=== PATIENT | female | born 1940 | race Caucasian/White ===

== ENCOUNTER 2019-11-20 11:52 | Day surgery (SDC) | payer OTHER ==
[~2019-11-20] VITALS: Ht 165.1 cm; Wt 84.3 kg
[~2019-11-20 11:52] MED LIST: ASPI81EC PO; BETA.1TL TP; CETI10 PO; DIGO.125 PO; ESTR.05PBW; Hair, Skin & N1 EACH PO; LOPE2C PO; NEBI5 PO; OMEP20ER PO; PARO10 PO; RANI150 PO; SIMV10 PO; XARELTO20 MG PO
== END 2019-11-20 13:19 | disposition home or self-care (01) ==
LOC: ORSCSDS 11:52
PROVIDERS: Internal Medicine Gastroenterology
PROC: 0DB58ZX Excision of Esophagus, Via Natural or Artificial Opening Endoscopic, Diagnostic (ICD-10-PCS; principal; 2019-11-20 13:00)
DX: K22.70 Barrett's esophagus without dysplasia (principal); K44.9 Diaphragmatic hernia without obstruction or gangrene; G47.33 Obstructive sleep apnea (adult) (pediatric); I48.91 Unspecified atrial fibrillation; E66.9 Obesity, unspecified; Z68.31 Body mass index [BMI] 31.0-31.9, adult; Z79.01 Long term (current) use of anticoagulants; Z79.899 Other long term (current) drug therapy
CPT/HCPCS: 82947; 88305; J2704; J7120

== ENCOUNTER 2019-12-28 14:09 | Emergency (ER) | payer OTHER ==
[~2019-12-28] VITALS: Ht 162.6 cm; Wt 83.9 kg
[2019-12-28 16:48] LABS: BASOPHILS ABSOLUTE AUTO 0.06 K/mm3 (0.00-0.23); BASOPHILS PERCENT AUTO 1 % (0-2); EOSINOPHILS ABSOLUTE AUTO 0.21 K/mm3 (0.00-0.68); EOSINOPHILS PERCENT AUTO 2 % (0-6); Hematocrit 43.6 % (33.0-51.0); Hemoglobin 13.7 g/dL (11.5-16.0); IMMATURE GRAN ABSOLUTE AUTO 0.03 K/mm3 (0.00-0.10); IMMATURE GRAN PERCENT AUTO 0 % (0-1); LYMPHOCYTES ABSOLUTE AUTO 2.08 K/mm3 (0.84-5.20); LYMPHOCYTES PERCENT AUTO 21 % (21-46); MONOCYTES ABSOLUTE AUTO 0.72 K/mm3 (0.16-1.47); MONOCYTES PERCENT AUTO 7 % (4-13); Mean Corpuscular HGB Conc 31.4 g/dL (31.5-36.5); Mean Corpuscular Volume 96 fL (80-100); Mean Platelet Volume 11.3 fL (9.1-12.4); NEUTROPHILS ABSOLUTE AUTO 6.85 K/mm3 (1.96-9.15); NEUTROPHILS PERCENT AUTO 69 % (41-73); Platelet Count 298 K/mm3 (150-400); RDW Coefficient Variation 12.9 % (11.7-14.2); RDW Standard Deviation 45.1 fL (35.1-46.3); Red Blood Cell Count 4.56 M/mm3 (3.80-5.20); White Blood Cell Count 9.95 K/mm3 (4.00-11.30)
[2019-12-28 17:12] LABS: Alanine Aminotransfer (ALT/SGP 24 U/L (12-78); Albumin, Blood 3.6 g/dL (3.4-5.0); Anion Gap 4 mmol/L (6-16); Blood Urea Nitrogen 16 mg/dL (8-24); CO2, Blood 27 mmol/L (21-32); Chloride, Blood 109 mmol/L (98-108); Glucose, Blood 107 mg/dL (70-99); Potassium, Blood 3.9 mmol/L (3.5-5.5); Sodium, Blood 140 mmol/L (136-145)
[2019-12-28 17:18] LABS: Troponin I 0.015 ng/mL (0.000-0.040)
[2019-12-28 17:19] LABS: Albumin/Globulin Ratio 0.9 (0.8-1.8); Alk Phos 63 U/L (50-136); Bilirubin, Total 0.2 mg/dL (0.1-1.0); Bun/Creatinine Ratio 17.6 (12.0-20.0); Creatinine, Blood 0.91 mg/dL (0.40-1.00); Glomerular Filtration Rate >60 (60-); Total Protein, Blood 7.6 g/dL (6.4-8.2)
[2019-12-28 17:28] LABS: Aspartate Aminotrans (AST/SGOT 14 U/L (12-37)
[2019-12-28 18:14] LABS: Digoxin (Lanoxin) 0.95 ug/mL (0.80-2.00)
== END 2019-12-28 19:15 | disposition home or self-care (01) ==
LOC: ER 14:09
PROVIDERS: Physician Assistant
DX: I48.91 Unspecified atrial fibrillation (principal); E78.5 Hyperlipidemia, unspecified; Z79.899 Other long term (current) drug therapy
CPT/HCPCS: 36415; 71046; 80053; 80162; 84443; 84484; 85025; 93005; 93010; 96374; 99285-25

== ENCOUNTER → 2021-01-31 | Outpatient (CLI) | payer OTHER | END | disposition home or self-care (01) | LOC: LAB SHORT 11:00 | DX: R30.0 Dysuria (principal) | CPT/HCPCS: 87077; 87086; 87186 ==

== ENCOUNTER → 2021-02-01 | Outpatient (CLI) | payer OTHER | END | disposition home or self-care (01) | LOC: LAB EV 10:28 → LAB SHORT 10:28 | DX: N39.0 Urinary tract infection, site not specified (principal) | CPT/HCPCS: 87077; 87086; 87147; 87186 ==

== ENCOUNTER 2021-03-17 14:23 | Emergency (ER) | payer OTHER ==
[~2021-03-17] VITALS: Ht 162.6 cm; Wt 75.8 kg
[2021-03-17 15:19] LABS: BASOPHILS ABSOLUTE AUTO 0.05 K/mm3 (0.00-0.23); BASOPHILS PERCENT AUTO 1 % (0-2); EOSINOPHILS ABSOLUTE AUTO 0.23 K/mm3 (0.00-0.68); EOSINOPHILS PERCENT AUTO 3 % (0-6); Hematocrit 40.3 % (33.0-51.0); Hemoglobin 13.1 g/dL (11.5-16.0); IMMATURE GRAN ABSOLUTE AUTO 0.03 K/mm3 (0.00-0.10); IMMATURE GRAN PERCENT AUTO 0 % (0-1); LYMPHOCYTES ABSOLUTE AUTO 1.64 K/mm3 (0.84-5.20); LYMPHOCYTES PERCENT AUTO 19 % (21-46); MONOCYTES ABSOLUTE AUTO 0.57 K/mm3 (0.16-1.47); MONOCYTES PERCENT AUTO 7 % (4-13); Mean Corpuscular HGB 30.5 pg (26.0-34.0); Mean Corpuscular HGB Conc 32.5 g/dL (31.5-36.5); Mean Corpuscular Volume 94 fL (80-100); Mean Platelet Volume 11.6 fL (9.1-12.4); NEUTROPHILS ABSOLUTE AUTO 6.01 K/mm3 (1.96-9.15); NEUTROPHILS PERCENT AUTO 70 % (41-73); Platelet Count 272 K/mm3 (150-400); RDW Coefficient Variation 13.3 % (11.7-14.2); RDW Standard Deviation 45.8 fL (35.1-46.3); Red Blood Cell Count 4.29 M/mm3 (3.80-5.20); White Blood Cell Count 8.53 K/mm3 (4.00-11.30)
[2021-03-17 15:52] LABS: Albumin, Blood 3.5 g/dL (3.4-5.0); Albumin/Globulin Ratio 1.1 (0.8-1.8); Bilirubin, Total 0.3 mg/dL (0.1-1.0); Bun/Creatinine Ratio 19.1 (12.0-20.0); Calcium, Blood 9.1 mg/dL (8.5-10.1); Creatinine, Blood 1.1 mg/dL (0.40-1.00); Globulin, Blood 3.3 g/dL (2.2-4.0); Potassium, Blood 4.3 mmol/L (3.5-5.5); Total Protein, Blood 6.8 g/dL (6.4-8.2)
[2021-03-17 18:49] LABS: Source, Urine Clean Catch
[2021-03-17 18:53] LABS: Appearance, Urine Hazy (Clear); Bilirubin, Urine Neg (Neg); Blood, Urine 1+ (Neg); Color, Urine Yellow (P-Yellow); Glucose Qualitative, Urine Neg (Neg); Ketones, Urine 1+ (Neg); Leukocyte Esterase, Urine 3+ (Neg); Nitrite, Urine Neg (Neg); Protein, Urine 2+ (Neg); Urobilinogen, Urine NORM (Normal)
[2021-03-17 19:11] LABS: Bacteria Many /hpf; Red Blood Cells, Urine 0-2 /hpf (0-2); Squamous Epithelial Cells Many /hpf (Few); White Blood Cells, Urine 50-100 /hpf (0-5)
== END 2021-03-17 18:35 | disposition left against medical advice (07) ==
LOC: ER 14:23
PROVIDERS: Physician Assistant
DX: R10.9 Unspecified abdominal pain (principal); Z53.21 Procedure and treatment not carried out due to patient leaving prior to being seen by health care provider; Z87.891 Personal history of nicotine dependence; Z79.899 Other long term (current) drug therapy; Z79.01 Long term (current) use of anticoagulants
CPT/HCPCS: 36415; 80053; 81001; 83690; 85025; 87086; 87147; 99283

== ENCOUNTER 2021-07-28 07:59 | Day surgery (SDC) | payer OTHER ==
[~2021-07-28] VITALS: Ht 162.6 cm; Wt 75.1 kg
[~2021-07-28 07:59] MED LIST changes: +Lisinopril2.5 MG; +OMEP20ER
== END 2021-07-28 10:35 | disposition home or self-care (01) ==
LOC: ORSCSDS 07:59
PROVIDERS: Internal Medicine Gastroenterology
PROC: 0D758ZZ Dilation of Esophagus, Via Natural or Artificial Opening Endoscopic (ICD-10-PCS; principal; 2021-07-28 09:45)
PROC: 0DB58ZX Excision of Esophagus, Via Natural or Artificial Opening Endoscopic, Diagnostic (ICD-10-PCS; principal; 2021-07-28 09:45)
PROC: 0DBL8ZX Excision of Transverse Colon, Via Natural or Artificial Opening Endoscopic, Diagnostic (ICD-10-PCS; principal; 2021-07-28 09:45)
PROC: 0DBM8ZX Excision of Descending Colon, Via Natural or Artificial Opening Endoscopic, Diagnostic (ICD-10-PCS; principal; 2021-07-28 09:45)
DX: K22.70 Barrett's esophagus without dysplasia (principal); R13.14 Dysphagia, pharyngoesophageal phase; Z12.11 Encounter for screening for malignant neoplasm of colon; Z86.010 Personal history of colon polyps; K57.32 Diverticulitis of large intestine without perforation or abscess without bleeding; D12.3 Benign neoplasm of transverse colon; D12.4 Benign neoplasm of descending colon; K22.2 Esophageal obstruction; K44.9 Diaphragmatic hernia without obstruction or gangrene; I48.91 Unspecified atrial fibrillation; Z79.01 Long term (current) use of anticoagulants; Z79.899 Other long term (current) drug therapy
CPT/HCPCS: 88305; J2704; J7120

== ENCOUNTER 2022-09-12 17:47 | Emergency (ER) | payer OTHER ==
[~2022-09-12] VITALS: Ht 162.6 cm; Wt 80.7 kg
[2022-09-12 18:43] LABS: BASOPHILS ABSOLUTE AUTO 0.04 K/mm3 (0.00-0.23); BASOPHILS PERCENT AUTO 1 % (0-2); EOSINOPHILS ABSOLUTE AUTO 0.14 K/mm3 (0.00-0.68); EOSINOPHILS PERCENT AUTO 2 % (0-6); Hematocrit 37.7 % (33.0-51.0); Hemoglobin 12.4 g/dL (11.5-16.0); IMMATURE GRAN ABSOLUTE AUTO 0.02 K/mm3 (0.00-0.10); IMMATURE GRAN PERCENT AUTO 0 % (0-1); LYMPHOCYTES ABSOLUTE AUTO 0.62 K/mm3 (0.84-5.20); LYMPHOCYTES PERCENT AUTO 9 % (21-46); MONOCYTES ABSOLUTE AUTO 0.69 K/mm3 (0.16-1.47); MONOCYTES PERCENT AUTO 10 % (4-13); Mean Corpuscular HGB 30.8 pg (26.0-34.0); Mean Corpuscular HGB Conc 32.9 g/dL (31.5-36.5); Mean Corpuscular Volume 94 fL (80-100); Mean Platelet Volume 11.3 fL (9.1-12.4); NEUTROPHILS ABSOLUTE AUTO 5.54 K/mm3 (1.96-9.15); NEUTROPHILS PERCENT AUTO 79 % (41-73); Platelet Count 199 K/mm3 (150-400); RDW Coefficient Variation 13.2 % (11.7-14.2); RDW Standard Deviation 45.3 fL (35.1-46.3); Red Blood Cell Count 4.02 M/mm3 (3.80-5.20); White Blood Cell Count 7.05 K/mm3 (4.00-11.30)
[2022-09-12 18:45] LABS: Influenza A, PCR POSITIVE (NEGATIVE); Influenza B, PCR NEGATIVE (NEGATIVE); Resp Syncytial Virus, PCR NEGATIVE (NEGATIVE); SARS-Cov-2 (COVID-19) PCR, MMC NEGATIVE (NEGATIVE)
[2022-09-12 19:03] LABS: Albumin, Blood 3.3 g/dL (3.4-5.0); Bilirubin, Total 0.3 mg/dL (0.1-1.0); Bun/Creatinine Ratio 13.7 (12.0-20.0); Calcium, Blood 8.7 mg/dL (8.5-10.1); Creatinine, Blood 0.95 mg/dL (0.40-1.00); Globulin, Blood 3.4 g/dL (2.2-4.0); Potassium, Blood 4.2 mmol/L (3.5-5.5); Total Protein, Blood 6.7 g/dL (6.4-8.2)
== END 2022-09-12 20:04 | disposition home or self-care (01) ==
LOC: ER 17:47
PROVIDERS: Physician Assistant
DX: J10.1 Influenza due to other identified influenza virus with other respiratory manifestations (principal); E78.5 Hyperlipidemia, unspecified; Z20.822 Contact with and (suspected) exposure to COVID-19; Z79.899 Other long term (current) drug therapy; Z79.02 Long term (current) use of antithrombotics/antiplatelets
CPT/HCPCS: 0241U; 71046; 80053; 84484; 85025; 93005; 93010

== ENCOUNTER 2024-07-23 16:44 | Emergency (ER) | payer OTHER ==
[~2024-07-23] VITALS: Ht 160 cm; Wt 79.8 kg
[~2024-07-23 16:44] MED LIST changes: -IRON FOLATE PL1 EACH PO; -ONDA4ODT MM
[2024-07-23 18:09] LABS: Hemoglobin 7.3 g/dL (11.5-16.0); Mean Corpuscular HGB 22.2 pg (26.0-34.0); Mean Corpuscular HGB Conc 29.2 g/dL (31.5-36.5); Mean Corpuscular Volume 76 fL (80-100); Mean Platelet Volume 10.6 fL (9.1-12.4); Platelet Count 596 K/mm3 (150-400); RDW Standard Deviation 46.9 fL (35.1-46.3); Red Blood Cell Count 3.29 M/mm3 (3.80-5.20)
[2024-07-23 18:30] LABS: Albumin, Blood 3.9 g/dL (3.4-5.0); Albumin/Globulin Ratio 1.1 (0.8-1.8); Bilirubin, Total 0.5 mg/dL (0.1-1.0); Bun/Creatinine Ratio 21.5 (12.0-20.0); Calcium, Blood 8.8 mg/dL (8.5-10.1); Creatinine, Blood 2.65 mg/dL (0.40-1.00); Globulin, Blood 3.6 g/dL (2.2-4.0); Percent Saturation 3.7 % (15.0-50.0); Potassium, Blood 4.4 mmol/L (3.5-5.5); Total Protein, Blood 7.5 g/dL (6.4-8.2)
[2024-07-23 18:31] LABS: BASOPHILS ABSOLUTE MAN 0.15 K/mm3 (0.00-0.23); BASOPHILS PERCENT MAN 1 % (0-2); EOSINOPHILS PERCENT MAN 0 % (0-6); LYMPHOCYTES PERCENT MAN 6 % (21-46); MONOCYTES ABSOLUTE MAN 0.45 K/mm3 (0.16-1.47); MONOCYTES PERCENT MAN 3 % (4-13); NEUTROPHILS ABSOLUTE MAN 13.59 K/mm3 (1.96-9.15); SEG NEUTROPHILS PERCENT MAN 90 % (41-73); TOTAL CELLS COUNTED 100
[2024-07-23 19:07] LABS: Albumin, Blood 3.9 g/dL (3.4-5.0); Albumin/Globulin Ratio 1.1 (0.8-1.8); Bilirubin, Total 0.5 mg/dL (0.1-1.0); Bun/Creatinine Ratio 20.9 (12.0-20.0); Calcium, Blood 9.2 mg/dL (8.5-10.1); Creatinine, Blood 2.68 mg/dL (0.40-1.00); Globulin, Blood 3.7 g/dL (2.2-4.0); Potassium, Blood 4.6 mmol/L (3.5-5.5); Total Protein, Blood 7.6 g/dL (6.4-8.2)
[2024-07-23] MEDS ORDERED: NS 500 ML IV SCH (19:10)
[2024-07-23 21:45] VITALS: BP 114/45
[2024-07-23] MEDS ORDERED: ONDA4ODT MM (22:03)
[2024-07-23] MEDS ORDERED: IRON FOLATE PL1 EACH PO (22:03)
== END 2024-07-23 22:00 | disposition home or self-care (01) ==
LOC: ER 16:44
PROVIDERS: Emergency Medicine; Physician Assistant
DX: R11.2 Nausea with vomiting, unspecified (principal); K80.20 Calculus of gallbladder without cholecystitis without obstruction; D64.9 Anemia, unspecified; R79.89 Other specified abnormal findings of blood chemistry; E86.0 Dehydration; R94.31 Abnormal electrocardiogram [ECG] [EKG]; E61.1 Iron deficiency; K21.9 Gastro-esophageal reflux disease without esophagitis; I11.0 Hypertensive heart disease with heart failure; I50.9 Heart failure, unspecified; E78.5 Hyperlipidemia, unspecified; Z79.899 Other long term (current) drug therapy; Z79.02 Long term (current) use of antithrombotics/antiplatelets
CPT/HCPCS: 71045; 74176; 80053; 82728; 83540; 83550; 83690; 83735; 84484; 85025; 99284-25; J7030

== ENCOUNTER → 2024-07-23 | Outpatient (CLI) | payer OTHER ==
[~2024-07-23] MED LIST changes: +IRON FOLATE PL1 EACH PO; +ONDA4ODT MM; +PARO20 PO
[2024-07-23 15:53] LABS: BASOPHILS ABSOLUTE AUTO 0.04 K/mm3 (0.00-0.23); BASOPHILS PERCENT AUTO 0 % (0-2); EOSINOPHILS PERCENT AUTO 0 % (0-6); Hematocrit 24.5 % (33.0-51.0); Hemoglobin 7.3 g/dL (11.5-16.0); IMMATURE GRAN ABSOLUTE AUTO 0.08 K/mm3 (0.00-0.10); IMMATURE GRAN PERCENT AUTO 1 % (0-1); LYMPHOCYTES ABSOLUTE AUTO 0.87 K/mm3 (0.84-5.20); LYMPHOCYTES PERCENT AUTO 6 % (21-46); MONOCYTES ABSOLUTE AUTO 0.63 K/mm3 (0.16-1.47); MONOCYTES PERCENT AUTO 5 % (4-13); Mean Corpuscular HGB 22.3 pg (26.0-34.0); Mean Corpuscular HGB Conc 29.8 g/dL (31.5-36.5); Mean Corpuscular Volume 75 fL (80-100); NEUTROPHILS PERCENT AUTO 88 % (41-73); Platelet Count 579 K/mm3 (150-400); RDW Coefficient Variation 17.1 % (11.7-14.2); RDW Standard Deviation 46.5 fL (35.1-46.3); Red Blood Cell Count 3.27 M/mm3 (3.80-5.20); White Blood Cell Count 13.82 K/mm3 (4.00-11.30)
[2024-07-23 16:06] LABS: Albumin, Blood 3.9 g/dL (3.4-5.0); Albumin/Globulin Ratio 1.1 (0.8-1.8); Bilirubin, Total 0.5 mg/dL (0.1-1.0); Calcium, Blood 9.3 mg/dL (8.5-10.1); Creatinine, Blood 2.84 mg/dL (0.40-1.00); Globulin, Blood 3.7 g/dL (2.2-4.0); Magnesium, Blood 2.3 mg/dL (1.6-2.4); Potassium, Blood 4.8 mmol/L (3.5-5.5); Total Protein, Blood 7.6 g/dL (6.4-8.2)
== END ==
LOC: LAB SHORT 15:48 → LAB 15:48
PROVIDERS: Physician Assistant
DX: R11.2 Nausea with vomiting, unspecified (principal)
CPT/HCPCS: 80053; 83690; 83735; 84484; 85025

== ENCOUNTER 2024-07-26 18:12 | Emergency (ER) | payer OTHER ==
[~2024-07-26] VITALS: Ht 162.6 cm; Wt 79.4 kg
[~2024-07-26 18:12] MED LIST changes: +IRON FOLATE PL1 EACH PO; +ONDA4ODT MM
[2024-07-26 19:00] LABS: BASOPHILS ABSOLUTE AUTO 0.05 K/mm3 (0.00-0.23); BASOPHILS PERCENT AUTO 1 % (0-2); EOSINOPHILS ABSOLUTE AUTO 0.06 K/mm3 (0.00-0.68); EOSINOPHILS PERCENT AUTO 1 % (0-6); Hemoglobin 6.9 g/dL (11.5-16.0); IMMATURE GRAN ABSOLUTE AUTO 0.02 K/mm3 (0.00-0.10); IMMATURE GRAN PERCENT AUTO 0 % (0-1); LYMPHOCYTES PERCENT AUTO 15 % (21-46); MONOCYTES ABSOLUTE AUTO 0.69 K/mm3 (0.16-1.47); MONOCYTES PERCENT AUTO 8 % (4-13); Mean Corpuscular HGB Conc 28.8 g/dL (31.5-36.5); Mean Corpuscular Volume 77 fL (80-100); NEUTROPHILS ABSOLUTE AUTO 6.86 K/mm3 (1.96-9.15); NEUTROPHILS PERCENT AUTO 76 % (41-73); Platelet Count 544 K/mm3 (150-400); RDW Coefficient Variation 16.9 % (11.7-14.2); Red Blood Cell Count 3.13 M/mm3 (3.80-5.20); White Blood Cell Count 8.98 K/mm3 (4.00-11.30)
[2024-07-26 19:11] LABS: Albumin, Blood 3.5 g/dL (3.4-5.0); Bilirubin, Total 0.3 mg/dL (0.1-1.0); Bun/Creatinine Ratio 27.3 (12.0-20.0); Calcium, Blood 9.4 mg/dL (8.5-10.1); Creatinine, Blood 2.2 mg/dL (0.40-1.00); Globulin, Blood 3.6 g/dL (2.2-4.0); Potassium, Blood 4.2 mmol/L (3.5-5.5); Total Protein, Blood 7.1 g/dL (6.4-8.2)
[2024-07-26 22:26] LABS: Source, Urine Clean Catch
[2024-07-26 22:29] LABS: Appearance, Urine Clear (Clear); Bilirubin, Urine Neg (Neg); Blood, Urine Neg (Neg); Color, Urine Yellow (P-Yellow); Glucose Qualitative, Urine Neg (Neg); Ketones, Urine Neg (Neg); Leukocyte Esterase, Urine Neg (Neg); Nitrite, Urine Neg (Neg); Protein, Urine Neg (Neg); Urobilinogen, Urine NORM (Normal)
[2024-07-26] MEDS ORDERED: NS 1,000 ML IV SCH (23:50)
[2024-07-27 06:45] VITALS: BP 102/58
== END 2024-07-27 07:31 | disposition home or self-care (01) ==
LOC: ER 18:12
PROVIDERS: Student in an Organized Health Care Education/Training Program
DX: D64.9 Anemia, unspecified (principal); E86.0 Dehydration; R79.89 Other specified abnormal findings of blood chemistry; I48.91 Unspecified atrial fibrillation; E78.5 Hyperlipidemia, unspecified; I10 Essential (primary) hypertension; K21.9 Gastro-esophageal reflux disease without esophagitis; Z79.01 Long term (current) use of anticoagulants; Z79.899 Other long term (current) drug therapy
CPT/HCPCS: 36415; 36430; 80053; 81003; 83690; 85025; 86850; 86900; 86901; 86923; 93005; 93010; 99283-25; J7030; P9016

== ENCOUNTER 2024-08-07 10:20 | Inpatient (IN) | payer OTHER ==
[~2024-08-07] VITALS: Ht 160 cm; Wt 80.5 kg
[~2024-08-07 10:20] MED LIST changes: -DIGO.125 PO; +DIGOX125 MC1 PO; -Lisinopril2.5 MG; +Lisinopril2.5 MG PO; -OMEP20ER
[2024-08-07 11:26] VITALS: BP 118/52
[2024-08-07] MEDS ORDERED: FLU VACC TS2024-25(6MOS UP)/PF 45 MCG/0.5 ML SYRINGE IM SCH (13:10)
--- NOTE | 2024-08-07 13:12 | NUR ---
ORDERS FROM DR JUANA ANGUIANO: ADMIT TO FLOOR TELEMETRY - OBSERVATION STATUS - DR KETAN ANGUIANO DIAGNOSIS: BLOOD LOSS ANEMIA CONDITION: STABLE CODE STATUS: FULL CODE VITALS: ORTHOSTATIC BP AND PULSE CHECK UPON ARRIVAL, THEN PER UNIT ROUTINE. ACTIVITY: BATHROOM PRIVILAGES ALLERGIES: KNDA NURSING: SCDs TO LEs WHILE IN BED DIET: CLEAR LIQUIDS IVF: D51/2NS @ 60mL/hr PHARMACY: NEBIVOLOL 10MG PO QD (HOLD FOR PULSE <60) LISINOPRILE 2.5MG PO DAILY (HOLD FOR SYSTOLIC BP <1100 PAROXETINE 10MG PO AT BEDTIME ONDANSETRON 4MG PO/SL q4h PRN NAUSEA APAP 500MG PO Q6h PRN PAIN/FEVER LABS: STAT CBC WITH AUTO DIFF, PT/PTT, CMP, TYPE AND SCREEN CONSULT: DR RODDY PITTMAN (I HAVE CONTACTED HIM ABOUT THE CONSULT) "84-YEAR-OLD FEMALE WITH APPARENT BLOOD LOSS ANEMIA; PLEASE HELP WITH FURTHER EVALUATION AND TREATMENT NEEDED". *PLEASE NOTIFY DR PITTMAN WHEN PATIENT ARRIVES TO FLOOR OF ROOM #. ADDITIONAL QUESTIONS TO DR INMAN ([facility] HOSPITALIST) AQUARIUM SPECIALIST. KETAN ANGUIANO MD [phone]
[2024-08-07 13:44] LABS: BASOPHILS ABSOLUTE AUTO 0.04 K/mm3 (0.00-0.23); BASOPHILS PERCENT AUTO 1 % (0-2); EOSINOPHILS ABSOLUTE AUTO 0.03 K/mm3 (0.00-0.68); EOSINOPHILS PERCENT AUTO 0 % (0-6); Hematocrit 26.9 % (33.0-51.0); Hemoglobin 7.9 g/dL (11.5-16.0); IMMATURE GRAN ABSOLUTE AUTO 0.03 K/mm3 (0.00-0.10); IMMATURE GRAN PERCENT AUTO 0 % (0-1); LYMPHOCYTES PERCENT AUTO 8 % (21-46); MONOCYTES ABSOLUTE AUTO 0.45 K/mm3 (0.16-1.47); MONOCYTES PERCENT AUTO 5 % (4-13); Mean Corpuscular HGB Conc 29.4 g/dL (31.5-36.5); Mean Corpuscular Volume 82 fL (80-100); Mean Platelet Volume 10.7 fL (9.1-12.4); NEUTROPHILS ABSOLUTE AUTO 7.29 K/mm3 (1.96-9.15); NEUTROPHILS PERCENT AUTO 85 % (41-73); Platelet Count 294 K/mm3 (150-400); RDW Coefficient Variation 22.3 % (11.7-14.2); RDW Standard Deviation 65.1 fL (35.1-46.3); Red Blood Cell Count 3.29 M/mm3 (3.80-5.20); White Blood Cell Count 8.54 K/mm3 (4.00-11.30)
[2024-08-07 13:53] VITALS: BP 131/50
[2024-08-07 13:56] VITALS: BP 123/43
[2024-08-07 14:00] LABS: Albumin, Blood 3.2 g/dL (3.4-5.0); Bilirubin, Total 0.4 mg/dL (0.1-1.0); Bun/Creatinine Ratio 13.3 (12.0-20.0); Calcium, Blood 9.2 mg/dL (8.5-10.1); Creatinine, Blood 1.2 mg/dL (0.40-1.00); Globulin, Blood 3.3 g/dL (2.2-4.0); Potassium, Blood 4.2 mmol/L (3.5-5.5); Total Protein, Blood 6.5 g/dL (6.4-8.2)
[2024-08-07] MEDS ORDERED: Ondansetron 4 MG SoluTab MM PRN (14:45)
[2024-08-07] MEDS ORDERED: D5W-1/2NS 1,000 ML IV SCH (14:50)
[2024-08-07] MEDS ORDERED: Acetaminophen 500 MG Tab PO PRN (14:50)
[2024-08-07] MEDS ORDERED: Pantoprazole Sodium 40 MG Injection IV SCH (15:00)
[2024-08-07 15:21] VITALS: BP 118/56
[2024-08-07] MEDS ORDERED: Carvedilol 6.25 MG Tab PO SCH (17:00)
[2024-08-07] MEDS ORDERED: Sodium, Potassium,Mag Sulfates 354 ML PO SCH (17:00)
[2024-08-07] MEDS ORDERED: Glycopyrrolate 0.2 MG/ML 5ML SYR (1MG Total) XX ONE (18:18)
[2024-08-07] MEDS ORDERED: ePHEDrine Sulfate 50 MG/ML 1ML Injection XX ONE (18:18)
[2024-08-07 19:19] VITALS: BP 123/53
--- NOTE | 2024-08-07 19:46 | NUR ---
END OF SHIFT SUMMARY: A&Ox4. PLEASANT AND COOPERATIVE WITH CARE. CALLS APPROPRIATELY AND IS ABLE TO ADVOCATE NEEDS EFFECTIVELY. AMBULATES INDEPENDENTLY. CONTINENT OF BOWEL AND URINE. TAKES MEDS WHOLE WITH FLUIDS. TELE NSR. STARTED BOWEL PREP IN ANTICIPATION OF EGD AND COLONOSCOPY TOMORROW. DR PITTMAN CONSULTED. BED IN LOWEST POSITION. CALL LIGHT WITHIN REACH. ALL NEEDS MET. REPORT TO ONCOMING NURSE.
[2024-08-07] MEDS ORDERED: Polyethylene Glycol 3350 17 gm PO ONE (21:00)
--- NOTE | 2024-08-08 03:40 | NUR ---
SHIFT SUMMARY PT IS A&O X4, PLEASANT AND COOPERATIVE WITH CARE.PT CONTINUES ON CLEAR LIQUID DIET D/T SCHEDULED COLONOSCOPY ON 08/08/24. PT HAD MULTIPLE LIQUID BM'S AT HS, BROWN IN COLOR. TELE: SR@36. PT DENIES PAIN. HEALTH HX AND MEDICATION RECONCILIATION COMPLETED BY THIS CHIEF COMMERCIAL OFFICER. NO ACUTE EVENTS DURING THIS SHIFT. BED AT THE LOWEST POSITION, CALL LIGHT WITHIN REACH. PT IS ABLE TO MAKE HER NEEDS KNOWN.
[2024-08-08 03:59] VITALS: BP 116/56
[2024-08-08 06:32] LABS: BASOPHILS ABSOLUTE AUTO 0.04 K/mm3 (0.00-0.23); BASOPHILS PERCENT AUTO 1 % (0-2); EOSINOPHILS ABSOLUTE AUTO 0.07 K/mm3 (0.00-0.68); EOSINOPHILS PERCENT AUTO 1 % (0-6); Hematocrit 25.4 % (33.0-51.0); Hemoglobin 7.6 g/dL (11.5-16.0); IMMATURE GRAN ABSOLUTE AUTO 0.01 K/mm3 (0.00-0.10); IMMATURE GRAN PERCENT AUTO 0 % (0-1); LYMPHOCYTES ABSOLUTE AUTO 1.16 K/mm3 (0.84-5.20); LYMPHOCYTES PERCENT AUTO 15 % (21-46); MONOCYTES ABSOLUTE AUTO 0.61 K/mm3 (0.16-1.47); MONOCYTES PERCENT AUTO 8 % (4-13); Mean Corpuscular HGB 24.2 pg (26.0-34.0); Mean Corpuscular HGB Conc 29.9 g/dL (31.5-36.5); Mean Corpuscular Volume 81 fL (80-100); Mean Platelet Volume 11.3 fL (9.1-12.4); NEUTROPHILS ABSOLUTE AUTO 5.63 K/mm3 (1.96-9.15); NEUTROPHILS PERCENT AUTO 75 % (41-73); Platelet Count 288 K/mm3 (150-400); RDW Coefficient Variation 22.7 % (11.7-14.2); RDW Standard Deviation 66.9 fL (35.1-46.3); Red Blood Cell Count 3.14 M/mm3 (3.80-5.20); White Blood Cell Count 7.52 K/mm3 (4.00-11.30)
[2024-08-08 07:08] VITALS: BP 102/46
[2024-08-08 07:21] LABS: Bun/Creatinine Ratio 13.1 (12.0-20.0); Calcium, Blood 8.5 mg/dL (8.5-10.1); Creatinine, Blood 1.22 mg/dL (0.40-1.00); Potassium, Blood 3.8 mmol/L (3.5-5.5)
[2024-08-08] MEDS ORDERED: Lisinopril 5 MG Tab PO SCH (09:00)
[2024-08-08] MEDS ORDERED: PARoxetine HCl 10 MG Tab PO SCH (09:00)
[2024-08-08] MEDS ORDERED: NIGHT TIME PAI1 EAC1 PO (12:03)
[2024-08-08] MEDS ORDERED: ATOR10 PO (12:03)
[2024-08-08] MEDS ORDERED: CENTRUM SILVER1 EAC2 PO (12:04)
[2024-08-08] MEDS ORDERED: NS 500 ML IV SCH (12:10)
--- NOTE | 2024-08-08 12:25 | NUR ---
"Spiritual Care Visit | Pt Request Pt. is awake and rewading a book when she welcomed my visit. Pt. is pleasant. 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 COnsidered matters of family and soledad. Pt. displays evidence of both strength and confidence. Prayed with the Pt. over her upcoming colonoscopy. Pt. verbalized gratitude for both the prayer and the spiritual care visit."
[2024-08-08 13:04] VITALS: BP 105/68
[2024-08-08] MEDS ORDERED: XARELTO20 MG PO (13:21)
--- NOTE | 2024-08-08 14:52 | NUR ---
08/08/24 1452 Luis Herrera History, Chart, Medications and Allergies reviewed before start of procedure.MONITOR INTACT WITH CONTINUOUS PULSE OXIMETRY, CONTINUOUS END TITAL CO2, AND INTERMITTENT BLOOD PRESSURE.3-LEAD EKG REVIEWED WITH PHYSICIAN PRIOR TO START OF PROCEDURE.O2 VIA POM INTACT THROUGHOUT SEDATION/PROCEDURE.See Anesthesia record.
[2024-08-08] MEDS ORDERED: Lidocaine HCl 4% 5 ML SDA ONE (14:53)
[2024-08-08] MEDS ORDERED: Etomidate 2MG / ML 10ML Vial ONE (15:19)
[2024-08-08] MEDS ORDERED: Dexmedetomidine HCL 200 MCG / 2 ML ONE (15:19)
[2024-08-08] MEDS ORDERED: propofoL 50 ML IV ONE (15:20)
--- NOTE | 2024-08-08 17:00 | NUR ---
PT RETURNED FROM ENDOSCOPY AND COLONOSCOPY, PER REPORT NOTHING WAS FOUND.
[2024-08-08 17:19] VITALS: BP 105/49
--- NOTE | 2024-08-08 17:54 | NUR ---
SHIFT SUMMARY PT IS A/OX4. INDEPENDENT IN THE ROOM. PT COMPLETED COLONOSCOPY AND ENDOSCOPY THIS AFTERNOON. PER REPORT NOTHING FOUND. ON TELE RUNNING SINUS RHYTHM IN THE 70-80'S. ON RA SATS MAINTAINING >95%. DISCHARGE EXPECTED TOMORROW.
[2024-08-08 19:30] VITALS: BP 93/67
[2024-08-08 19:32] VITALS: BP 100/50
--- NOTE | 2024-08-09 03:04 | NUR ---
SHIFT SUMMARY PT IS A&O X4, PLEASANT AND COOPERATIVE WITH CARE. NO N/V OR BM DURING THIS SHIFT. BOWEL SOUNDS HYPOACTIVE PER AUSCULTATION. PT DENIES PAIN/SOB/DISCOMFORT. PT REPORTS TO THIS STOVE REFINISHER THAT AWAITING TO D/C HOME TODAY. TELE: SR @77 WITH BB &1ST DEGREE HB, PER GEOGRAPHIC ANALYST. NO ACUTE EVENTS DURING THIS SHIFT. BED AT THE LOWEST POSITION, CALL LIGHT W/I REACH. PT IS ABLE TO MAKE HER NEEDS KNOWN.
[2024-08-09 04:21] VITALS: BP 113/46
[2024-08-09] MEDS ORDERED: DEXTROMETHORPHAN/BENZOCAINE 1 EACH LOZENGE MT PRN (04:55)
[2024-08-09 05:49] LABS: BASOPHILS ABSOLUTE AUTO 0.03 K/mm3 (0.00-0.23); BASOPHILS PERCENT AUTO 0 % (0-2); EOSINOPHILS ABSOLUTE AUTO 0.17 K/mm3 (0.00-0.68); EOSINOPHILS PERCENT AUTO 2 % (0-6); Hematocrit 25.4 % (33.0-51.0); Hemoglobin 7.7 g/dL (11.5-16.0); IMMATURE GRAN ABSOLUTE AUTO 0.02 K/mm3 (0.00-0.10); IMMATURE GRAN PERCENT AUTO 0 % (0-1); LYMPHOCYTES ABSOLUTE AUTO 1.12 K/mm3 (0.84-5.20); LYMPHOCYTES PERCENT AUTO 13 % (21-46); MONOCYTES ABSOLUTE AUTO 0.66 K/mm3 (0.16-1.47); MONOCYTES PERCENT AUTO 8 % (4-13); Mean Corpuscular HGB 24.4 pg (26.0-34.0); Mean Corpuscular HGB Conc 30.3 g/dL (31.5-36.5); Mean Corpuscular Volume 81 fL (80-100); Mean Platelet Volume 10.7 fL (9.1-12.4); NEUTROPHILS PERCENT AUTO 76 % (41-73); Platelet Count 243 K/mm3 (150-400); RDW Standard Deviation 66.2 fL (35.1-46.3); Red Blood Cell Count 3.15 M/mm3 (3.80-5.20)
[2024-08-09] MEDS ORDERED: Omeprazole 20 MG CapCR PO SCH (06:00)
[2024-08-09 06:13] LABS: Bun/Creatinine Ratio 11.1 (12.0-20.0); Calcium, Blood 8.7 mg/dL (8.5-10.1); Creatinine, Blood 1.08 mg/dL (0.40-1.00); Potassium, Blood 3.5 mmol/L (3.5-5.5)
--- NOTE | 2024-08-09 06:16 | NUR ---
NEW T-ORDER FROM , ON-CALL HOSPITALIST: CEPACOL LOZENGE FOR SORE THROAT, PO Q4HRS PRN. ENTERED TO [place], SEE EMAR. NO ADDITIONAL NEW ORDERS AT THIS TIME.
--- NOTE | 2024-08-09 06:34 | NUR ---
NEW T-ORDER RECEIVED FROM , ON-CALL HOSPITALIST: CEPHACOL THROAT LOZENGE, 1 LOZENGE PO Q4HRS PRN. ENTERED TO SCHEDit, SEE EMAR. NO ADDITIONAL NEW ORDERS AT THIS TIME.
[2024-08-09 07:20] VITALS: BP 115/47
--- NOTE | 2024-08-09 12:21 | NUR ---
PT DISCHARGED TO HOME WITH . DISCHARGE INSTRUCITONS PROVIDED AND EDUCATED ON.
== END 2024-08-09 12:21 | disposition home or self-care (01) | DRG 377 ==
LOC: MEDS 10:20 → ENPENDDIS 08-09 13:19
PROVIDERS: Internal Medicine Gastroenterology; ADMIT Internal Medicine
PROC: 30233N1 Transfusion of Nonautologous Red Blood Cells into Peripheral Vein, Percutaneous Approach (ICD-10-PCS; 2024-08-07)
PROC: 0DB98ZX Excision of Duodenum, Via Natural or Artificial Opening Endoscopic, Diagnostic (ICD-10-PCS; principal; 2024-08-08 15:00)
PROC: 0DB68ZX Excision of Stomach, Via Natural or Artificial Opening Endoscopic, Diagnostic (ICD-10-PCS; 2024-08-08 15:00)
PROC: 0DBL8ZX Excision of Transverse Colon, Via Natural or Artificial Opening Endoscopic, Diagnostic (ICD-10-PCS; 2024-08-08 15:00)
DX: K57.31 Diverticulosis of large intestine without perforation or abscess with bleeding (principal); K55.039 Acute (reversible) ischemia of large intestine, extent unspecified; D62 Acute posthemorrhagic anemia; N17.9 Acute kidney failure, unspecified; I48.0 Paroxysmal atrial fibrillation; E78.5 Hyperlipidemia, unspecified; I35.0 Nonrheumatic aortic (valve) stenosis; D12.6 Benign neoplasm of colon, unspecified; I12.9 Hypertensive chronic kidney disease with stage 1 through stage 4 chronic kidney disease, or unspecified chronic kidney disease; K22.0 Achalasia of cardia; E11.22 Type 2 diabetes mellitus with diabetic chronic kidney disease; N18.31 Chronic kidney disease, stage 3a; K31.7 Polyp of stomach and duodenum; K21.9 Gastro-esophageal reflux disease without esophagitis; I27.20 Pulmonary hypertension, unspecified; I70.1 Atherosclerosis of renal artery; F32.A Depression, unspecified; Z87.19 Personal history of other diseases of the digestive system; K58.9 Irritable bowel syndrome, unspecified; Z79.01 Long term (current) use of anticoagulants; Z79.811 Long term (current) use of aromatase inhibitors; Z79.899 Other long term (current) drug therapy; K22.2 Esophageal obstruction
CPT/HCPCS: 36415; 80048; 80053; 85025; 88305; 88342; A9270; J2001; J2470; J2704; J7040; J7042

== ENCOUNTER 2024-09-08 16:24 | Emergency (ER) | payer OTHER ==
[~2024-09-08] VITALS: Ht 160 cm; Wt 78.5 kg
[~2024-09-08 16:24] MED LIST changes: +ATOR10 PO; +CENTRUM SILVER1 EAC2 PO; +NIGHT TIME PAI1 EAC1 PO
[2024-09-08 17:21] LABS: BASOPHILS ABSOLUTE AUTO 0.07 K/mm3 (0.00-0.23); BASOPHILS PERCENT AUTO 1 % (0-2); EOSINOPHILS ABSOLUTE AUTO 0.15 K/mm3 (0.00-0.68); EOSINOPHILS PERCENT AUTO 2 % (0-6); Hematocrit 34.5 % (33.0-51.0); Hemoglobin 10.5 g/dL (11.5-16.0); IMMATURE GRAN ABSOLUTE AUTO 0.06 K/mm3 (0.00-0.10); IMMATURE GRAN PERCENT AUTO 1 % (0-1); LYMPHOCYTES ABSOLUTE AUTO 1.77 K/mm3 (0.84-5.20); LYMPHOCYTES PERCENT AUTO 17 % (21-46); MONOCYTES ABSOLUTE AUTO 0.78 K/mm3 (0.16-1.47); MONOCYTES PERCENT AUTO 8 % (4-13); Mean Corpuscular HGB 25.9 pg (26.0-34.0); Mean Corpuscular HGB Conc 30.4 g/dL (31.5-36.5); Mean Corpuscular Volume 85 fL (80-100); Mean Platelet Volume 10.7 fL (9.1-12.4); NEUTROPHILS ABSOLUTE AUTO 7.51 K/mm3 (1.96-9.15); NEUTROPHILS PERCENT AUTO 73 % (41-73); Platelet Count 349 K/mm3 (150-400); RDW Coefficient Variation 23.4 % (11.7-14.2); Red Blood Cell Count 4.06 M/mm3 (3.80-5.20); White Blood Cell Count 10.34 K/mm3 (4.00-11.30)
[2024-09-08 17:47] LABS: Albumin, Blood 3.6 g/dL (3.4-5.0); Bilirubin, Total 0.2 mg/dL (0.1-1.0); Bun/Creatinine Ratio 15.6 (12.0-20.0); Calcium, Blood 8.8 mg/dL (8.5-10.1); Creatinine, Blood 1.22 mg/dL (0.40-1.00); Globulin, Blood 3.5 g/dL (2.2-4.0); Potassium, Blood 3.7 mmol/L (3.5-5.5); Total Protein, Blood 7.1 g/dL (6.4-8.2)
[2024-09-08] MEDS ORDERED: Ondansetron HCl 2 MG / ML 2ML Vial IV ONE (17:50)
[2024-09-08] MEDS ORDERED: Lidocaine 4% 1 Patch TOP ONE (20:25)
[2024-09-08 20:30] VITALS: BP 126/61
[2024-09-08] MEDS ORDERED: FERSU300 PO (20:30)
[2024-09-08] MEDS ORDERED: FARXIGA10 MG PO (20:30)
[2024-09-08] MEDS ORDERED: NEBI5 PO (20:31)
== END 2024-09-08 20:45 | disposition short-term general hospital (02) ==
LOC: ER 16:24
PROVIDERS: Student in an Organized Health Care Education/Training Program
DX: I44.2 Atrioventricular block, complete (principal); R55 Syncope and collapse; E78.5 Hyperlipidemia, unspecified; I10 Essential (primary) hypertension; I48.91 Unspecified atrial fibrillation; K21.9 Gastro-esophageal reflux disease without esophagitis; Z79.899 Other long term (current) drug therapy
CPT/HCPCS: 71045; 80053; 83690; 84484; 85025; 93005; 93010; 99284-25; A9270

== ENCOUNTER → 2024-11-09 | Outpatient (CLI) | payer OTHER ==
[~2024-11-09] MED LIST changes: +FARXIGA10 MG PO; +FERSU300 PO
== END ==
LOC: LAB 16:14 → LAB SHORT 16:14
DX: L08.9 Local infection of the skin and subcutaneous tissue, unspecified (principal)
CPT/HCPCS: 87070; 87205

== ENCOUNTER 2025-05-23 07:08 | Day surgery (SDC) | payer OTHER ==
[~2025-05-23] VITALS: Ht 160 cm; Wt 82.8 kg
[2025-05-23] MEDS ORDERED: NEBI10 (07:36)
[2025-05-23] MEDS ORDERED: ELIQUIS2.5 MG (07:36)
[2025-05-23] MEDS ORDERED: IRON 65MG (07:37)
[2025-05-23] MEDS ORDERED: Estrace Vagin42.5 GM (07:39)
[2025-05-23] MEDS ORDERED: FLUOROURACIL 5% (07:40)
[2025-05-23] MEDS ORDERED: IPRATROPIUM BRO30 ML (07:40)
[2025-05-23] MEDS ORDERED: Phenylephrine HCl 10mg/ml 1 ml Vial ONE (08:35)
[2025-05-23] MEDS ORDERED: Phenylephrine HCl 100 MCG/ML-NS 10MLSYR (1MG/10ML) ONE (08:36)
[2025-05-23 09:21] VITALS: BP 113/58
== END 2025-05-23 09:31 | disposition home or self-care (01) ==
LOC: ORSCSDS 07:08
PROVIDERS: Specialist
PROC: 0DJ08ZZ Inspection of Upper Intestinal Tract, Via Natural or Artificial Opening Endoscopic (ICD-10-PCS; principal; 2025-05-23 08:45)
DX: K22.70 Barrett's esophagus without dysplasia (principal); D50.9 Iron deficiency anemia, unspecified; Z95.0 Presence of cardiac pacemaker; Q39.6 Congenital diverticulum of esophagus; E11.9 Type 2 diabetes mellitus without complications; K44.9 Diaphragmatic hernia without obstruction or gangrene; E78.5 Hyperlipidemia, unspecified; I10 Essential (primary) hypertension; K21.9 Gastro-esophageal reflux disease without esophagitis; Z79.899 Other long term (current) drug therapy
CPT/HCPCS: 82947; J2371; J2704; J7120